=== PATIENT | female | born 2000 | race African-American/Black ===

== ENCOUNTER 2025-03-03 19:27 | Emergency (ER) | payer MEDICAID ==
[~2025-03-03] VITALS: Ht 165.1 cm; Wt 77.1 kg
[2025-03-03 19:27] VITALS: BP 129/77; TEMP 98.1; O2SAT 98
== END 2025-03-03 21:34 | disposition home or self-care (01) ==
LOC: ER 19:30
DX: M79.641 Pain in right hand (principal); W21.89XA Striking against or struck by other sports equipment, initial encounter; Y93.89 Activity, other specified; Y92.89 Other specified places as the place of occurrence of the external cause; Y99.8 Other external cause status
CPT/HCPCS: 73130-TC